=== PATIENT | female | born 1940 | race Hispanic/Latino ===

== ENCOUNTER → 2023-10-15 | Outpatient (CLI) | payer OTHER ==
[2023-10-15 10:11] LABS: BASOPHILS # (AUTO) 0.02 K/uL (0.00-0.20); BASOPHILS % (AUTO) 0.4 % (0.0-5.0); EOSINOPHILS # (AUTO) 0.28 K/uL (0.00-0.70); EOSINOPHILS % (AUTO) 5.2 % (0.0-8.0); HEMATOCRIT 43.9 % (36-48); IMMATURE GRANULOCYTE ABSOLUTE 0.02 K/uL (0-1); LYMPHOCYTES % (AUTO) 17.7 % (21.0-51.0); MEAN CORPUSCULAR HGB CONC 32.6 g/dL (32.0-36.0); MEAN CORPUSCULAR VOLUME 101.4 fL (79-99); MONOCYTES # (AUTO) 0.5 K/uL (0.1-1.0); MONOCYTES % (AUTO) 8.8 % (3.0-13.0); NEUTROPHILS # (AUTO) 3.6 K/uL (1.8-7.7); NEUTROPHILS % (AUTO) 67.5 % (40.0-77.0); PLATELET COUNT (AUTO) 148 K/uL (130-400); RED BLOOD CELL COUNT(AUTO) 4.33 MIL/uL (4.00-5.50); RED CELL DISTRIBUTION WIDTH 13.9 % (11.0-15.5); WHITE BLOOD COUNT (AUTO) 5.4 K/uL (4.8-10.8)
[2023-10-15 10:17] LABS: CREATININE 0.6 mg/dL (0.5-1.5)
== END | disposition home or self-care (01) ==
LOC: LAB 09:01
PROVIDERS: ATTEND Urology
DX: N39.0 Urinary tract infection, site not specified (principal)
CPT/HCPCS: 36415; 80048; 85025

== ENCOUNTER → 2023-10-18 | Outpatient (CLI) | payer OTHER ==
[~2023-10-18] MED LIST: IOHEXOL 350 MG/ML 100ML INFUS..BTL IV ONE
== END | disposition home or self-care (01) ==
LOC: RAH 07:53
PROVIDERS: ATTEND Urology
DX: N39.0 Urinary tract infection, site not specified (principal)
CPT/HCPCS: 74178; Q9967

== ENCOUNTER 2023-10-22 10:14 | Emergency (ER) | payer OTHER ==
[~2023-10-22] VITALS: Ht 154.9 cm; Wt 82.6 kg
[2023-10-22 10:49] LABS: BASOPHILS # (AUTO) 0.02 K/uL (0.00-0.20); BASOPHILS % (AUTO) 0.4 % (0.0-5.0); EOSINOPHILS # (AUTO) 0.23 K/uL (0.00-0.70); EOSINOPHILS % (AUTO) 4.2 % (0.0-8.0); HEMATOCRIT 42.6 % (36-48); IMMATURE GRANULOCYTE ABSOLUTE 0.02 K/uL (0-1); LYMPHOCYTES % (AUTO) 17.5 % (21.0-51.0); MEAN CORPUSCULAR HEMOGLOBIN 33.2 pg (27.0-33.0); MEAN CORPUSCULAR HGB CONC 33.8 g/dL (32.0-36.0); MEAN CORPUSCULAR VOLUME 98.2 fL (79-99); MONOCYTES # (AUTO) 0.5 K/uL (0.1-1.0); MONOCYTES % (AUTO) 8.9 % (3.0-13.0); NEUTROPHILS # (AUTO) 3.8 K/uL (1.8-7.7); NEUTROPHILS % (AUTO) 68.6 % (40.0-77.0); PLATELET COUNT (AUTO) 153 K/uL (130-400); RED BLOOD CELL COUNT(AUTO) 4.34 MIL/uL (4.00-5.50); RED CELL DISTRIBUTION WIDTH 13.7 % (11.0-15.5); WHITE BLOOD COUNT (AUTO) 5.5 K/uL (4.8-10.8)
[2023-10-22 10:58] LABS: CREATININE 0.6 mg/dL (0.5-1.5); POTASSIUM 3.6 mmol/L (3.5-5.1)
[2023-10-22 10:59] LABS: APPEARANCE,URINE CLOUDY (CLEAR); BILIRUBIN,URINE NEGATIVE (NEGATIVE); COLOR,URINE YELLOW (YELLOW); GLUCOSE, URINE (UA) NEGATIVE (NEGATIVE); KETONES,URINE NEGATIVE (NEGATIVE); LEUKOCYTE ESTERASE ,URINE 250 Leu/uL (NEGATIVE); NITRATE,URINE 2+ (NEGATIVE); OCCULT BLOOD,URINE NEGATIVE (NEGATIVE); PROTEIN,URINE NEGATIVE (NEGATIVE); UROBILINOGEN,URINE 3 mg/dL (0.2-1.0)
[2023-10-22 11:02] LABS: ADD UA MICROSCOPIC YES
[2023-10-22 11:03] LABS: ALBUMIN 3.4 g/dL (3.5-5.0); BILIRUBIN,TOTAL 0.8 mg/dL (0.2-1.0); TOTAL PROTEIN, SERUM 6.8 g/dL (6.0-8.3)
[2023-10-22 11:04] LABS: BACTERIA,URINE FEW /HPF (None Seen); MUCUS,URINE RARE LPF (None Seen); RBC,URINE 0-1 /HPF (0-1); SQUAMOUS EPITHELIAL CELL,UR RARE /HPF (0-2)
[2023-10-22] MEDS ORDERED: FOSF3PAC4 PO (12:13)
[2023-10-22] MEDS ORDERED: [UNRECOGNIZED DRUG - OTHER] PO (12:13)
[2023-10-22] MEDS: ONDANSETRON 4MG TABLET PO ONE (12:25)
[2023-10-22] MEDS: CEFTRIAXONE 1G VIAL IM ONE (12:26)
[2023-10-22] MEDS: KETOROLAC 30MG VIAL (30MG/ML) IM ONE (12:27)
[2023-10-22 12:39] VITALS: BP 151/60; PULSE 80; RESP 18; O2SAT 99
== END 2023-10-22 12:46 | disposition home or self-care (01) ==
LOC: EDH 10:14
DX: N39.0 Urinary tract infection, site not specified (principal); E03.9 Hypothyroidism, unspecified; Z88.8 Allergy status to other drugs, medicaments and biological substances; Z90.710 Acquired absence of both cervix and uterus; Z90.49 Acquired absence of other specified parts of digestive tract
CPT/HCPCS: 99284; 82150; 82550; 84484; 80053; 83690; 85025; 87077; 87088; 87186; 81001; 36415; 96372 ×2; 93005; Q0162; J0696; J1885

== ENCOUNTER 2025-08-25 16:11 | Emergency (ER) | payer OTHER ==
[~2025-08-25] VITALS: Ht 152.4 cm; Wt 74.8 kg
[~2025-08-25 16:11] MED LIST changes: +FOSF3PAC4 PO; -IOHEXOL 350 MG/ML 100ML INFUS..BTL IV ONE; +[UNRECOGNIZED DRUG - OTHER] PO
--- NOTE | 2025-08-25 16:27 | NUR ---
PER GENES[facility] WITH POISON CONTROL, TARGET RANGE NORMAL PH FOR EYE IS 7.0-7.3 AFTER SEVERAL IRRIGATIONS, PH CAN BE BETWEEN: 6.5-7.6 IRRIGATE FOR 15 MINUTES. FLUROCEINSE TEST FOR ABRASIONS. .
--- NOTE | 2025-08-25 16:30 | NUR ---
JUN LENSES INSERTED AND HOOKED UP TO NS FOR IRRIGATION.
--- NOTE | 2025-08-25 16:59 | NUR ---
MORGANS LENSES REMOVED AFTER 20MINS OF MILD IRRIGATION
--- NOTE | 2025-08-25 17:15 | NUR ---
PT WET AND CONTAMINATED CLOTHING REMOVED AND SHE WAS PLACED IN PAPER SCRUBS. PT ALSO USED THE BEDPAN TO URINATE.
--- NOTE | 2025-08-25 17:34 | NUR ---
NAVDEEP FLORES MADE AWARE PT READY FOR HIM TO ASSESS THE OCULAR PH
--- NOTE | 2025-08-25 17:59 | NUR ---
EYE IRRIGATION TWO NEW JUN LENSES ATTACHED TO 2 NS 250MLS FOR CONTINUED IRRIGATION.
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
--- NOTE | 2025-08-25 18:23 | NUR ---
POISON CONTROL EMILIANA CALLED FOR UPDATE.
--- NOTE | 2025-08-25 19:09 | NUR ---
REPORT ENDORSED TO PRISCILLA PENN
[2025-08-25] MEDS: NA BORATE/BORIC AC/H2O/NACL 120 ML OPHTH IRRIG SOLN OP ONE (20:20)
[2025-08-25 20:38] VITALS: BP 137/85; PULSE 70; RESP 18; TEMP 98.3; O2SAT 99
== END 2025-08-25 20:47 | disposition home or self-care (01) ==
LOC: EDH 16:11
DX: T52.0X1A Toxic effect of petroleum products, accidental (unintentional), initial encounter (principal); H10.213 Acute toxic conjunctivitis, bilateral; E03.9 Hypothyroidism, unspecified; M19.90 Unspecified osteoarthritis, unspecified site; Z96.653 Presence of artificial knee joint, bilateral; Z88.1 Allergy status to other antibiotic agents; Y92.89 Other specified places as the place of occurrence of the external cause
CPT/HCPCS: 99284